=== PATIENT | male | born 1960 | race African-American/Black ===

== ENCOUNTER 2017-01-26 12:53 | Inpatient (IN) | payer MEDICARE, MEDICAID ==
[~2017-01-26] VITALS: Ht 180.3 cm; Wt 73.0 kg
[~2017-01-26 12:53] MED LIST: AMLO10TA80 PO; CELL2 PO; CLON0.2T PO; COR25 PO; ESOM40CA PO; FISH1CAP29 PO; FOLI-43 PO; FOLI1TAB63 PO; FURO-151 PO; HYDR-4134 PO; LEVO250T2 PO; NEPVIT PO; OMEG1CAP17 PO; OMEP20CA10 PO; PRED5TAB48 PO; PROG1 PO; REV20 PO; SUCR1TAB PO; TAMS-11 PO; VALS320T9 PO
[2017-01-26 13:25] LABS: MEAN CORPUSCULAR HEMOGLOBIN 29.3 pg (28.0-32.0); MEAN CORPUSCULAR HGB CONC 31.8 g/dL (31.0-37.0); MEAN PLATELET VOLUME 8.4 fl (7.4-10.4); PLATELET 139 x1000/uL (130-400); RED BLOOD CELL COUNT 2.09 mill/uL (4.7-6.1); RED CELL DISTRIBUTION WIDTH 19.7 % (11.6-14.6); WHITE BLOOD COUNT 5.6 x1000/uL (4.5-11.0)
[2017-01-26 13:29] LABS: DIFFERENTIAL COMMENT 1; HEMATOCRIT. 19.2 % (42.0-52.0); HEMOGLOBIN. 6.1 g/dL (14.0-18.0)
[2017-01-26 13:31] LABS: CHLORIDE 113 mEq/L (98-107); INDEX HEMOLYSI 1 (1-3); INDEX ICTERIC 1 (1-4); INDEX LIPEMIC 1 (1-3)
[2017-01-26 13:33] LABS: INR 1.1; PROTHROMBIN TIME 11.4 sec
[2017-01-26 13:40] LABS: ALANINE AMINOTRANSFERASE 11 IU/L (13-61); ALBUMIN 2.4 g/dL (3.4-5.0); ANION GAP 16; CALCIUM 8.3 mg/dL (8.5-10.1); CARBON DIOXIDE 15 mEq/L (21-32); UREA NITROGEN BLOOD 58 mg/dL (7-21); eGFR 12 mL/min (>60)
[2017-01-26 14:06] LABS: PLATELET ESTIMATE NORMAL
[2017-01-26 14:07] LABS: ANISOCYTOSIS 2+
[2017-01-26] MEDS ORDERED: ONDANSETRON HCL 4MG/2ML VIAL IV PRN (14:45)
[2017-01-26] MEDS ORDERED: IPRATROPIUM/ALBUTEROL 0.5-3(2.5)MG/3ML NEB INH PRN (14:45)
[2017-01-26] MEDS ORDERED: MORPHINE SULFATE 2 MG/ML CPJ (NOT FOR IM USE) IV PRN (14:45)
[2017-01-26] MEDS ORDERED: MAGNESIUM/ALUMINUM HYDROXIDE/SIMETHICONE 30ML UDC PO PRN (14:45)
[2017-01-26] MEDS ORDERED: TRAMADOL 50MG TABLET PO PRN (14:45)
[2017-01-26] MEDS ORDERED: LORAZEPAM 2MG/ML CPJ IV PRN (14:45)
[2017-01-26] MEDS ORDERED: CLONIDINE 0.1MG TABLET PO PRN (14:45)
[2017-01-26] MEDS ORDERED: PANTOPRAZOLE 80 MG in SODIUM CHLORIDE 0.9% 100 ML IV SCH ×2 (14:45→15:30)
[2017-01-26] MEDS ORDERED: DOCUSATE SODIUM 100MG CAPSULE PO PRN (14:45)
[2017-01-26] MEDS ORDERED: GUAIFENESIN 200MG/10ML SUGAR FREE UDC PO PRN (14:45)
[2017-01-26 15:32] LABS: INDEX HEMOLYSI 1 (1-3); INDEX ICTERIC 1 (1-4); INDEX LIPEMIC 1 (1-3); IRON 21 ug/dL (50-175); TOTAL IRON BINDING CAPACITY 171 ug/dL (250-450)
[2017-01-26] MEDS ORDERED: DIPHENHYDRAMINE 50MG/ML VIAL IV ONE (15:45)
[2017-01-26 16:03] LABS: FOLIC ACID (FOLATE) SERUM 18.9 ng/mL (>5.38)
[2017-01-26] MEDS: SEVELAMER CARBONATE 800 MG TABLET PO SCH (16:08)
[2017-01-26 21:10] VITALS: BP 165/87
[2017-01-26 21:20] VITALS: BP 165/87
[2017-01-26] MEDS: HYDRALAZINE HCL 50MG TABLET PO SCH (22:36)
[2017-01-26] MEDS: CARVEDILOL 25MG TABLET PO SCH (22:36)
[2017-01-26] MEDS: SILDENAFIL CITRATE 20MG TABLET PO SCH (22:37)
[2017-01-26] MEDS: ZOLPIDEM TARTRATE 5MG TABLET PO PRN (22:44)
[2017-01-27] VITALS (16 sets, daily range): BP systolic 126–159; BP diastolic 71–89
[2017-01-27] MEDS ORDERED: CALCIFEDIOL PO (00:03)
[2017-01-27] MEDS ORDERED: DRON400T PO (00:03)
[2017-01-27] MEDS ORDERED: MEGE400O PO (00:03)
[2017-01-27] MEDS ORDERED: FLUCONAZOLE PO (00:06)
[2017-01-27] MEDS ORDERED: DUTA0.5C2 PO (00:06)
[2017-01-27] MEDS ORDERED: FLUT100D INH (00:08)
[2017-01-27] MEDS ORDERED: SULF1TAB48 PO (00:09)
[2017-01-27 00:35] LABS: HEMATOCRIT 21.3 % (42.0-52.0)
[2017-01-27] MEDS: DIPHENHYDRAMINE 50MG/ML VIAL IV PRN ×2 (00:44→17:50)
[2017-01-27 00:48] LABS: HEMOGLOBIN 6.9 g/dL (14.0-18.0)
[2017-01-27] MEDS: HYDRALAZINE HCL 50MG TABLET PO SCH ×3 (05:52→21:45)
[2017-01-27] MEDS: TACROLIMUS 1MG CAPSULE PO SCH ×2 (05:52→18:10)
[2017-01-27] MEDS: SILDENAFIL CITRATE 20MG TABLET PO SCH ×3 (05:53→21:46)
[2017-01-27] MEDS: CARVEDILOL 25MG TABLET PO SCH ×2 (05:53→18:11)
[2017-01-27] MEDS: TAMSULOSIN HCL 0.4MG SR CAPSULE PO SCH ×2 (05:53→18:11)
[2017-01-27 06:29] LABS: HEMATOCRIT. 24.4 % (42.0-52.0); HEMOGLOBIN. 8.5 g/dL (14.0-18.0); MEAN CORPUSCULAR HEMOGLOBIN 31.6 pg (28.0-32.0); MEAN CORPUSCULAR HGB CONC 34.9 g/dL (31.0-37.0); MEAN CORPUSCULAR VOLUME 90.6 fL (80.0-94.0); MEAN PLATELET VOLUME 9.2 fl (7.4-10.4); PLATELET 145 x1000/uL (130-400); RED BLOOD CELL COUNT 2.69 mill/uL (4.7-6.1); RED CELL DISTRIBUTION WIDTH 17.8 % (11.6-14.6); WHITE BLOOD COUNT 5.9 x1000/uL (4.5-11.0)
[2017-01-27 07:04] LABS: DIFFERENTIAL COMMENT 1
[2017-01-27 07:15] LABS: INDEX HEMOLYSI 1 (1-3)
[2017-01-27] MEDS: SEVELAMER CARBONATE 800 MG TABLET PO SCH ×3 (07:59→18:10)
[2017-01-27] MEDS: MYCOPHENOLATE MOFETIL 500MG TABLET PO SCH ×2 (08:00→18:10)
[2017-01-27] MEDS: FOLIC ACID/VITAMIN B COMP W-C TABLET PO SCH (08:00)
[2017-01-27] MEDS: PREDNISONE 5MG TABLET PO SCH (08:00)
[2017-01-27] MEDS: PANTOPRAZOLE SODIUM 40 MG/VIAL IV SCH (08:00)
[2017-01-27] MEDS: ACETAMINOPHEN 325MG TABLET PO PRN (08:01)
[2017-01-27 08:54] LABS: ANISOCYTOSIS 1+; NUCLEATED RED BLOOD CELLS 1 /100 WBC; PLATELET ESTIMATE NORMAL
[2017-01-27 08:55] LABS: GIANT PLATELETS FEW
[2017-01-27] MEDS ORDERED: TACROLIMUS 1MG CAPSULE PO SCH (09:00)
[2017-01-27] MEDS: FUROSEMIDE 40MG TABLET PO SCH (09:23)
[2017-01-27] MEDS: DOXERCALCIFEROL 0.5MCG CAPSULE PO SCH (09:23)
[2017-01-27] MEDS: CITRIC ACID/SODIUM CITRATE SOLN 30ML UDC PO SCH ×3 (09:24→18:10)
[2017-01-27] MEDS: AMLODIPINE 10MG TABLET PO SCH (09:24)
[2017-01-27] MEDS: DUTASTERIDE 0.5MG CAPSULE PO SCH (11:00)
[2017-01-27] MEDS: ALBUTEROL (0.083%) 2.5MG/3ML NEB HHN PRN ×3 (11:03→21:11)
[2017-01-27 11:54] LABS: HEMATOCRIT 23.3 % (42.0-52.0); HEMOGLOBIN 7.6 g/dL (14.0-18.0)
[2017-01-27] MEDS ORDERED: VANCOMYCIN 1 G PREMIX 200 ML IV NR (12:00)
[2017-01-27] MEDS ORDERED: SILDENAFIL CITRATE 20MG TABLET PO SCH (14:00)
[2017-01-27] MEDS ORDERED: VANCOMYCIN 500 MG PREMIX 100 ML IV NR (20:00)
[2017-01-27 22:54] LABS: HEMATOCRIT 27.8 % (42.0-52.0); HEMOGLOBIN 8.8 g/dL (14.0-18.0)
[2017-01-27] MEDS: MEROPENEM 500 MG in SODIUM CHLORIDE 0.9% 50 ML IV SCH (23:26)
[2017-01-28] VITALS: BP 144/83
[2017-01-28] MEDS: ALBUTEROL (0.083%) 2.5MG/3ML NEB HHN PRN ×2 (02:11→21:03)
[2017-01-28 04:00] VITALS: BP 121/64
[2017-01-28 06:00] VITALS: BP 143/79
[2017-01-28] MEDS: TACROLIMUS 1MG CAPSULE PO SCH ×2 (06:15→18:28)
[2017-01-28] MEDS: HYDRALAZINE HCL 50MG TABLET PO SCH ×3 (06:16→21:12)
[2017-01-28] MEDS: CARVEDILOL 25MG TABLET PO SCH ×2 (06:16→18:29)
[2017-01-28] MEDS: SILDENAFIL CITRATE 20MG TABLET PO SCH ×3 (06:16→21:13)
[2017-01-28] MEDS: TAMSULOSIN HCL 0.4MG SR CAPSULE PO SCH ×2 (06:16→18:30)
[2017-01-28 06:29] LABS: HEMATOCRIT. 26.9 % (42.0-52.0); HEMOGLOBIN. 8.6 g/dL (14.0-18.0); MEAN CORPUSCULAR HEMOGLOBIN 28.8 pg (28.0-32.0); MEAN CORPUSCULAR HGB CONC 32.2 g/dL (31.0-37.0); MEAN CORPUSCULAR VOLUME 89.5 fL (80.0-94.0); MEAN PLATELET VOLUME 9.1 fl (7.4-10.4); PLATELET 145 x1000/uL (130-400); RED CELL DISTRIBUTION WIDTH 17.6 % (11.6-14.6); WHITE BLOOD COUNT 7.1 x1000/uL (4.5-11.0)
[2017-01-28 07:08] LABS: DIFFERENTIAL COMMENT 1
[2017-01-28 07:58] LABS: ALANINE AMINOTRANSFERASE < 6 IU/L (13-61); ALBUMIN 2.3 g/dL (3.4-5.0); ANION GAP 18; CALCIUM 8.4 mg/dL (8.5-10.1); CARBON DIOXIDE 15 mEq/L (21-32); CHLORIDE 112 mEq/L (98-107); INDEX HEMOLYSI 1 (1-3); INDEX ICTERIC 1 (1-4); INDEX LIPEMIC 1 (1-3); UREA NITROGEN BLOOD 55 mg/dL (7-21); eGFR 12 mL/min (>60)
[2017-01-28] MEDS: PANTOPRAZOLE SODIUM 40 MG/VIAL IV SCH (09:00)
[2017-01-28] MEDS: DUTASTERIDE 0.5MG CAPSULE PO SCH (09:04)
[2017-01-28] MEDS: FOLIC ACID/VITAMIN B COMP W-C TABLET PO SCH (09:04)
[2017-01-28] MEDS: CITRIC ACID/SODIUM CITRATE SOLN 30ML UDC PO SCH ×3 (09:05→18:27)
[2017-01-28] MEDS: MYCOPHENOLATE MOFETIL 500MG TABLET PO SCH ×2 (09:05→18:29)
[2017-01-28] MEDS: SEVELAMER CARBONATE 800 MG TABLET PO SCH ×3 (09:05→18:28)
[2017-01-28] MEDS: FUROSEMIDE 40MG TABLET PO SCH (09:05)
[2017-01-28] MEDS: DOXERCALCIFEROL 0.5MCG CAPSULE PO SCH (09:05)
[2017-01-28] MEDS: AMLODIPINE 10MG TABLET PO SCH (09:20)
[2017-01-28] MEDS: PREDNISONE 5MG TABLET PO SCH (09:21)
[2017-01-28 12:16] LABS: ANISOCYTOSIS 1+; PLATELET ESTIMATE NORMAL
[2017-01-28] MEDS: MEROPENEM 500 MG in SODIUM CHLORIDE 0.9% 50 ML IV SCH (13:27)
[2017-01-28 13:31] LABS: IMMUNOGLOBULIN A 263 mg/dL (90-386); IMMUNOGLOBULIN G 1227 mg/dL (700-1600); IMMUNOGLOBULIN M 84 mg/dL (20-172)
[2017-01-28] MEDS ORDERED: SIMETHICONE 40 MG/0.6 ML 30ML ONE (13:47)
[2017-01-28] MEDS ORDERED: SODIUM CHLORIDE 0.9% 10ML VIAL ONE (13:47)
[2017-01-28] MEDS ORDERED: MIDAZOLAM HCL 5 MG/5 ML VIAL IV PRN (15:24)
[2017-01-28] MEDS ORDERED: FENTANYL CITRATE/PF 50MCG/ML 2ML VIAL IV PRN (15:24)
[2017-01-28] MEDS ORDERED: MIDAZOLAM HCL 5 MG/5 ML VIAL ONE (15:29)
[2017-01-28] MEDS ORDERED: FENTANYL CITRATE/PF 50MCG/ML 2ML VIAL ONE (15:29)
[2017-01-28] MEDS ORDERED: SORBITOL 70% SOLN 30ML PO NR ×2 (17:00→20:30)
[2017-01-28] MEDS ORDERED: VANCOMYCIN 1 G PREMIX 200 ML IV SCH (18:30)
[2017-01-28 21:00] VITALS: BP 132/71
[2017-01-29] VITALS: BP 133/70
[2017-01-29] MEDS: MEROPENEM 500 MG in SODIUM CHLORIDE 0.9% 50 ML IV SCH ×3 (00:23→23:55)
[2017-01-29] MEDS: ALBUTEROL (0.083%) 2.5MG/3ML NEB HHN PRN ×3 (01:43→16:38)
[2017-01-29 04:00] VITALS: BP 146/72
[2017-01-29] MEDS: CARVEDILOL 25MG TABLET PO SCH ×2 (06:00→16:58)
[2017-01-29] MEDS: HYDRALAZINE HCL 50MG TABLET PO SCH ×3 (06:00→21:48)
[2017-01-29] MEDS: TAMSULOSIN HCL 0.4MG SR CAPSULE PO SCH ×2 (06:00→16:58)
[2017-01-29] MEDS: SILDENAFIL CITRATE 20MG TABLET PO SCH ×3 (06:00→21:48)
[2017-01-29] MEDS: TACROLIMUS 1MG CAPSULE PO SCH ×2 (06:00→16:58)
[2017-01-29] MEDS: SEVELAMER CARBONATE 800 MG TABLET PO SCH ×3 (07:40→16:57)
[2017-01-29 08:00] VITALS: BP 150/72
[2017-01-29] MEDS: DOXERCALCIFEROL 0.5MCG CAPSULE PO SCH (08:26)
[2017-01-29] MEDS: PANTOPRAZOLE SODIUM 40 MG/VIAL IV SCH (08:26)
[2017-01-29] MEDS: PREDNISONE 5MG TABLET PO SCH (08:26)
[2017-01-29] MEDS: CITRIC ACID/SODIUM CITRATE SOLN 30ML UDC PO SCH ×3 (08:27→16:57)
[2017-01-29] MEDS: AMLODIPINE 10MG TABLET PO SCH (08:27)
[2017-01-29] MEDS: FOLIC ACID/VITAMIN B COMP W-C TABLET PO SCH (08:27)
[2017-01-29] MEDS: DUTASTERIDE 0.5MG CAPSULE PO SCH (08:27)
[2017-01-29] MEDS: MYCOPHENOLATE MOFETIL 500MG TABLET PO SCH ×2 (08:27→16:58)
[2017-01-29] MEDS: FUROSEMIDE 40MG TABLET PO SCH (08:27)
[2017-01-29 12:00] VITALS: BP 146/66
[2017-01-29 16:00] VITALS: BP 140/67
[2017-01-29 20:00] VITALS: BP 146/81
[2017-01-29] MEDS ORDERED: SORBITOL 70% SOLN 30ML PO NR (20:00)
[2017-01-29] MEDS: ZOLPIDEM TARTRATE 5MG TABLET PO PRN (23:55)
[2017-01-30] VITALS: BP 138/73
[2017-01-30] MEDS: ALBUTEROL (0.083%) 2.5MG/3ML NEB HHN PRN ×3 (02:31→20:14)
[2017-01-30 04:00] VITALS: BP 152/77
[2017-01-30] MEDS: HYDRALAZINE HCL 50MG TABLET PO SCH ×3 (05:44→21:10)
[2017-01-30] MEDS: TAMSULOSIN HCL 0.4MG SR CAPSULE PO SCH ×2 (05:44→17:15)
[2017-01-30] MEDS: CARVEDILOL 25MG TABLET PO SCH ×2 (05:45→17:23)
[2017-01-30] MEDS: TACROLIMUS 1MG CAPSULE PO SCH ×2 (05:45→17:15)
[2017-01-30] MEDS: SILDENAFIL CITRATE 20MG TABLET PO SCH ×3 (05:49→21:10)
[2017-01-30] MEDS ORDERED: SORBITOL 70% SOLN 30ML PO NR (06:00)
[2017-01-30] MEDS: SEVELAMER CARBONATE 800 MG TABLET PO SCH ×3 (07:43→17:15)
[2017-01-30 08:00] VITALS: BP 127/62
[2017-01-30] MEDS ORDERED: NA PHOS,M-B/NA PHOS,DI-BA ENEMA 118ML PR NR (08:00)
[2017-01-30] MEDS: FOLIC ACID/VITAMIN B COMP W-C TABLET PO SCH (09:56)
[2017-01-30] MEDS: DUTASTERIDE 0.5MG CAPSULE PO SCH (09:57)
[2017-01-30] MEDS: FUROSEMIDE 40MG TABLET PO SCH (09:57)
[2017-01-30] MEDS: CITRIC ACID/SODIUM CITRATE SOLN 30ML UDC PO SCH ×3 (09:57→17:15)
[2017-01-30] MEDS: MYCOPHENOLATE MOFETIL 500MG TABLET PO SCH ×2 (09:57→17:15)
[2017-01-30] MEDS: AMLODIPINE 10MG TABLET PO SCH (09:58)
[2017-01-30] MEDS: DOXERCALCIFEROL 0.5MCG CAPSULE PO SCH (09:58)
[2017-01-30] MEDS: PREDNISONE 5MG TABLET PO SCH (10:00)
[2017-01-30] MEDS: PANTOPRAZOLE SODIUM 40 MG/VIAL IV SCH (10:15)
[2017-01-30 12:00] VITALS: BP 135/72
[2017-01-30] MEDS: MEROPENEM 500 MG in SODIUM CHLORIDE 0.9% 50 ML IV SCH (12:42)
[2017-01-30 16:00] VITALS: BP 146/73
[2017-01-30 20:05] VITALS: BP 147/72
[2017-01-31] VITALS (7 sets, daily range): BP systolic 143–165; BP diastolic 60–87
[2017-01-31 00:12] LABS: CALCIUM 8.4 mg/dL (8.5-10.1)
[2017-01-31] MEDS: MEROPENEM 500 MG in SODIUM CHLORIDE 0.9% 50 ML IV SCH ×3 (00:13→23:56)
[2017-01-31] MEDS: SILDENAFIL CITRATE 20MG TABLET PO SCH ×3 (05:01→21:45)
[2017-01-31] MEDS: HYDRALAZINE HCL 50MG TABLET PO SCH ×3 (05:01→21:44)
[2017-01-31] MEDS: CARVEDILOL 25MG TABLET PO SCH ×2 (06:12→17:01)
[2017-01-31] MEDS: TAMSULOSIN HCL 0.4MG SR CAPSULE PO SCH ×2 (06:12→17:01)
[2017-01-31] MEDS: TACROLIMUS 1MG CAPSULE PO SCH ×2 (06:12→17:01)
[2017-01-31] MEDS: FOLIC ACID/VITAMIN B COMP W-C TABLET PO SCH (08:13)
[2017-01-31] MEDS: CITRIC ACID/SODIUM CITRATE SOLN 30ML UDC PO SCH ×3 (08:13→17:01)
[2017-01-31] MEDS: PANTOPRAZOLE SODIUM 40 MG/VIAL IV SCH (08:13)
[2017-01-31] MEDS: FUROSEMIDE 40MG TABLET PO SCH (08:14)
[2017-01-31] MEDS: DUTASTERIDE 0.5MG CAPSULE PO SCH (08:14)
[2017-01-31] MEDS: AMLODIPINE 10MG TABLET PO SCH (08:14)
[2017-01-31] MEDS: PREDNISONE 5MG TABLET PO SCH (08:14)
[2017-01-31] MEDS: SEVELAMER CARBONATE 800 MG TABLET PO SCH ×3 (08:14→16:57)
[2017-01-31] MEDS: MYCOPHENOLATE MOFETIL 500MG TABLET PO SCH ×2 (08:14→16:58)
[2017-01-31] MEDS: DOXERCALCIFEROL 0.5MCG CAPSULE PO SCH (08:15)
[2017-01-31] MEDS: ALBUTEROL (0.083%) 2.5MG/3ML NEB HHN PRN ×2 (08:59→14:34)
[2017-01-31 09:02] LABS: BASOPHILS % 0.5 % (0.0-2.0); HEMATOCRIT. 29.9 % (42.0-52.0); HEMOGLOBIN. 9.6 g/dL (14.0-18.0); LYMPHOCYTES % 11.7 % (20.0-50.0); MEAN CORPUSCULAR HEMOGLOBIN 29.1 pg (28.0-32.0); MEAN CORPUSCULAR HGB CONC 32.2 g/dL (31.0-37.0); MEAN CORPUSCULAR VOLUME 90.3 fL (80.0-94.0); MEAN PLATELET VOLUME 8.2 fl (7.4-10.4); MONOCYTES % 11.7 % (2.0-8.0); NEUTROPHILS % 72.1 % (40.0-76.0); PLATELET 170 x1000/uL (130-400); RED BLOOD CELL COUNT 3.31 mill/uL (4.7-6.1); RED CELL DISTRIBUTION WIDTH 18.2 % (11.6-14.6); WHITE BLOOD COUNT 5.9 x1000/uL (4.5-11.0)
[2017-01-31 09:15] LABS: CALCIUM 8.5 mg/dL (8.5-10.1)
[2017-02-01] VITALS: BP 161/82
[2017-02-01 04:00] VITALS: BP 165/91
[2017-02-01] MEDS: HYDRALAZINE HCL 50MG TABLET PO SCH (05:39)
[2017-02-01] MEDS: TACROLIMUS 1MG CAPSULE PO SCH (05:40)
[2017-02-01] MEDS: TAMSULOSIN HCL 0.4MG SR CAPSULE PO SCH (05:40)
[2017-02-01] MEDS: CARVEDILOL 25MG TABLET PO SCH (05:40)
[2017-02-01] MEDS: SILDENAFIL CITRATE 20MG TABLET PO SCH (05:40)
[2017-02-01 06:47] LABS: BASOPHILS % 0.5 % (0.0-2.0); EOSINOPHILS % 4.1 % (0.0-5.0); HEMATOCRIT. 28.8 % (42.0-52.0); HEMOGLOBIN. 9.1 g/dL (14.0-18.0); LYMPHOCYTES % 11.9 % (20.0-50.0); MEAN CORPUSCULAR HEMOGLOBIN 28.2 pg (28.0-32.0); MEAN CORPUSCULAR HGB CONC 31.4 g/dL (31.0-37.0); MEAN CORPUSCULAR VOLUME 89.8 fL (80.0-94.0); MEAN PLATELET VOLUME 7.5 fl (7.4-10.4); MONOCYTES % 10.5 % (2.0-8.0); PLATELET 168 x1000/uL (130-400); RED BLOOD CELL COUNT 3.21 mill/uL (4.7-6.1); WHITE BLOOD COUNT 6.2 x1000/uL (4.5-11.0)
[2017-02-01 08:00] VITALS: BP 141/83
[2017-02-01 08:26] LABS: CALCIUM 8.5 mg/dL (8.5-10.1)
[2017-02-01] MEDS: DUTASTERIDE 0.5MG CAPSULE PO SCH (08:52)
[2017-02-01] MEDS: PREDNISONE 5MG TABLET PO SCH (08:52)
[2017-02-01] MEDS: MYCOPHENOLATE MOFETIL 500MG TABLET PO SCH (08:53)
[2017-02-01] MEDS: FOLIC ACID/VITAMIN B COMP W-C TABLET PO SCH (08:53)
[2017-02-01] MEDS: AMLODIPINE 10MG TABLET PO SCH (08:53)
[2017-02-01] MEDS: SEVELAMER CARBONATE 800 MG TABLET PO SCH ×2 (08:53→11:59)
[2017-02-01] MEDS: PANTOPRAZOLE SODIUM 40 MG/VIAL IV SCH (08:54)
[2017-02-01] MEDS: FUROSEMIDE 40MG TABLET PO SCH (08:54)
[2017-02-01] MEDS: CITRIC ACID/SODIUM CITRATE SOLN 30ML UDC PO SCH ×2 (08:54→12:00)
[2017-02-01] MEDS: ACETAMINOPHEN 325MG TABLET PO PRN (08:54)
[2017-02-01] MEDS: DOXERCALCIFEROL 0.5MCG CAPSULE PO SCH (08:59)
[2017-02-01] MEDS: ALBUTEROL (0.083%) 2.5MG/3ML NEB HHN PRN (09:07)
[2017-02-01] MEDS: MEROPENEM 500 MG in SODIUM CHLORIDE 0.9% 50 ML IV SCH (11:48)
[2017-02-01 12:00] VITALS: BP 127/69
[2017-02-01 12:22] VITALS: BP 141/83
[2017-02-01 12:28] VITALS: BP 127/69
== END 2017-02-01 13:45 | disposition home or self-care (01) | DRG 871 ==
LOC: ER 14:07 → 8WST 14:11 → SUPCPDRO 20:05
PROVIDERS: ADMIT Internal Medicine; ATTEND Internal Medicine
PROC: 30233N1 Transfusion of Nonautologous Red Blood Cells into Peripheral Vein, Percutaneous Approach (ICD-10-PCS; 2017-01-26)
PROC: 0DB68ZX Excision of Stomach, Via Natural or Artificial Opening Endoscopic, Diagnostic (ICD-10-PCS; principal; 2017-01-28 15:00)
PROC: 02HV33Z Insertion of Infusion Device into Superior Vena Cava, Percutaneous Approach (ICD-10-PCS; 2017-01-31)
PROC: B5181ZA Fluoroscopy of Superior Vena Cava using Low Osmolar Contrast, Guidance (ICD-10-PCS; 2017-01-31)
PROC: B548ZZA Ultrasonography of Superior Vena Cava, Guidance (ICD-10-PCS; 2017-01-31)
DX: A41.51 Sepsis due to Escherichia coli [E. coli] (principal); E43 Unspecified severe protein-calorie malnutrition; N18.6 End stage renal disease; D62 Acute posthemorrhagic anemia; N17.9 Acute kidney failure, unspecified; N13.8 Other obstructive and reflux uropathy; I13.11 Hypertensive heart and chronic kidney disease without heart failure, with stage 5 chronic kidney disease, or end stage renal disease; K92.2 Gastrointestinal hemorrhage, unspecified; Z94.0 Kidney transplant status; D50.9 Iron deficiency anemia, unspecified; E78.00 Pure hypercholesterolemia, unspecified; E78.5 Hyperlipidemia, unspecified; I25.10 Atherosclerotic heart disease of native coronary artery without angina pectoris; I27.2 Other secondary pulmonary hypertension; K21.9 Gastro-esophageal reflux disease without esophagitis; N40.1 Benign prostatic hyperplasia with lower urinary tract symptoms; Z95.1 Presence of aortocoronary bypass graft; Z99.2 Dependence on renal dialysis; Z68.22 Body mass index [BMI] 22.0-22.9, adult; Z79.899 Other long term (current) drug therapy; Z28.21 Immunization not carried out because of patient refusal
CPT/HCPCS: 36415; 36430; 36569; 71010; 76937; 77001; 80048; 80053; 80202; 82270; 82607; 82728; 82746; 82784; 83010; 83540; 83550; 83615; 84145; 85014; 85018; 85025; 85610; 86334; 86850; 86880; 86900; 86920; 87040; 87077; 87086; 87186; 88305; 88312; 88313; 93005; 94640; 94664; 96374; 96375; 99291; A4216; C1725; C1769; C9113; J1200; J2185; J2250; J3010; J3370; J7050; J7507; J7512; J7517; J7611; P9016

== ENCOUNTER 2017-09-01 12:02 | Inpatient (IN) | payer MEDICARE, MEDICAID ==
[~2017-09-01] VITALS: Ht 180.3 cm; Wt 78.0 kg
[~2017-09-01 12:02] MED LIST changes: +CALCIFEDIOL PO; -CLON0.2T PO; +DRON400T PO; +DUTA0.5C2 PO; +FLUT100D INH; -FOLI-43 PO; -LEVO250T2 PO; +MEGE400O PO; -NEPVIT PO; +VALS320T2 PO; -VALS320T9 PO
[2017-09-01] MEDS ORDERED: IPRATROPIUM BROMIDE (0.02%) 0.5MG/2.5ML NEB HHN STA (12:42)
[2017-09-01] MEDS ORDERED: METHYLPREDNISOLONE SOD SUCC 125 MG/2 ML VIAL IV STA (12:42)
[2017-09-01] MEDS ORDERED: ALBUTEROL (0.083%) 2.5MG/3ML NEB HHN STA (12:42)
[2017-09-01 12:54] LABS: HEMOGLOBIN. 9.4 g/dL (14.0-18.0); MEAN CORPUSCULAR HEMOGLOBIN 28.8 pg (28.0-32.0); MEAN CORPUSCULAR VOLUME 92.3 fL (80.0-94.0); MEAN PLATELET VOLUME 7.7 fl (7.4-10.4); PLATELET 132 x1000/uL (130-400); RED BLOOD CELL COUNT 3.25 mill/uL (4.7-6.1); RED CELL DISTRIBUTION WIDTH 16.8 % (11.6-14.6)
[2017-09-01 13:03] LABS: INR 1.2; PROTHROMBIN TIME 12.4 sec (9.4-11.6)
[2017-09-01 13:08] LABS: CARBON DIOXIDE 30 mEq/L (21-32); CHLORIDE 102 mEq/L (98-107); PHOSPHORUS 3.2 mg/dL (2.5-4.9)
[2017-09-01 13:11] LABS: TROPONIN I 0.08 ng/mL (0.00-0.04)
[2017-09-01 13:30] LABS: ATYPICAL LYMPHOCYTES 2; PLATELET ESTIMATE NORMAL
[2017-09-01] MEDS ORDERED: CEFTRIAXONE 1 G PREMIX 50 ML IV ONE (13:30)
[2017-09-01] MEDS ORDERED: BUMETANIDE 0.25MG/ML 2ML VIAL IV ONE (13:30)
[2017-09-01] MEDS: AZITHROMYCIN 500 MG in DEXT 5% WATER 250 ML IV SCH ×2 (14:12→14:56)
[2017-09-01] MEDS ORDERED: ONDANSETRON HCL 4MG/2ML VIAL ONE (14:24)
[2017-09-01] MEDS: CARVEDILOL 25MG TABLET PO SCH ×2 (14:30→20:17)
[2017-09-01] MEDS ORDERED: ONDANSETRON HCL 4MG/2ML VIAL IV ONE (14:30)
[2017-09-01] MEDS ORDERED: CARVEDILOL 25MG TABLET PO ONE (14:30)
[2017-09-01 16:52] VITALS: BP 150/63
[2017-09-01] MEDS ORDERED: PIOGLITAZONE 45MG TABLET PO NR (17:00)
[2017-09-01 17:18] VITALS: BP 151/63
[2017-09-01] MEDS ORDERED: CEFTRIAXONE 2 G PREMIX 50 ML IV SCH (17:30)
[2017-09-01 17:40] LABS: BG BASE EXCESS -0.3 mmol/L (-2.0-2.0); BG CARBOXYHEMOGLOBIN 1.2 % (0.5-1.5); BG DEOXYHEMOGLOBIN 8.9 % (0.0-5.0); BG FRACTION INSPIRED OXYGEN 32; BG HCO3 ACT 27.5 mmol/L (22.0-26.0); BG METHEMOGLOBIN 0.3 % (0.0-1.5); BG OXYHEMOGLOBIN 89.6 % (94.0-97.0); BG PCO2 62.3 mmHg (35.0-45.0); BG PH 7.263 (7.350-7.450); BG PO2 66.5 mmHg (75.0-100.0); BG SAMPLE SITE RIGHT BRACHIAL; BG TOTAL HEMOGLOBIN 10.2 g/dL (12.0-18.0); BG VENT MODE NASAL CANNULA
[2017-09-01] MEDS: OMEPRAZOLE 20MG CAPSULE EXTENDED RELEASE PO SCH (18:35)
[2017-09-01] MEDS: LOSARTAN POTASSIUM 50 MG TABLET PO SCH ×2 (18:35→21:00)
[2017-09-01] MEDS: TACROLIMUS 0.5 MG CAPSULE PO SCH (18:35)
[2017-09-01] MEDS ORDERED: FLUTICASONE/VILANTEROL 200-25 BLST.W.DEV ORI SCH (20:00)
[2017-09-01 20:45] VITALS: BP 148/86
[2017-09-01] MEDS ORDERED: MYCOPHENOLATE MOFETIL 250MG CAPSULE PO SCH ×2 (21:00→22:00)
[2017-09-01] MEDS: BUDESONIDE 0.5MG/2ML NEB HHN SCH (21:43)
[2017-09-01] MEDS: IPRATROPIUM/ALBUTEROL 0.5-3(2.5)MG/3ML NEB HHN SCH (21:43)
[2017-09-01] MEDS: SILDENAFIL CITRATE 20MG TABLET PO SCH (21:49)
[2017-09-01] MEDS: FAMOTIDINE 20MG/2ML VIAL IV SCH (21:49)
[2017-09-01] MEDS: METHYLPREDNISOLONE SOD SUCC 125 MG/2 ML VIAL IV SCH (21:49)
[2017-09-01] MEDS: FLUTICASONE PROPIONATE 50MCG/SPRAY BOTTLE BOTHNSTRLS SCH (22:02)
[2017-09-01 22:03] VITALS: BP 147/69
[2017-09-01] MEDS: TAMSULOSIN HCL 0.4MG SR CAPSULE PO SCH (22:03)
[2017-09-01] MEDS ORDERED: MYCOPHENOLATE MOFETIL 500MG TABLET PO SCH (22:15)
[2017-09-01 22:53] LABS: CLARITY URINE CLEAR (CLEAR); COLOR URINE YELLOW (YELLOW); GLUCOSE URINE NEGATIVE (NEGATIVE); KETONES URINE NEGATIVE (NEGATIVE); LEUKOCYTE ESTERASE URINE TRACE (NEGATIVE); NITRITE URINE NEGATIVE (NEGATIVE); OCCULT BLOOD URINE TRACE (NEGATIVE); PH URINE 5.5 (4.5-8.0); PROTEIN URINE 3+ (NEGATIVE); SPECIFIC GRAVITY URINE 1.013 (1.005-1.030); UROBILINOGEN URINE 0.2 E.U./dL (0.2-1.0)
[2017-09-01 23:40] VITALS: BP 139/65
[2017-09-02] VITALS (12 sets, daily range): BP systolic 123–155; BP diastolic 52–71
[2017-09-02] MEDS: IPRATROPIUM/ALBUTEROL 0.5-3(2.5)MG/3ML NEB HHN SCH ×4 (00:38→20:42)
[2017-09-02] MEDS: OMEPRAZOLE 20MG CAPSULE EXTENDED RELEASE PO SCH (06:21)
[2017-09-02] MEDS: SILDENAFIL CITRATE 20MG TABLET PO SCH ×3 (06:21→22:04)
[2017-09-02] MEDS: METHYLPREDNISOLONE SOD SUCC 125 MG/2 ML VIAL IV SCH ×3 (06:21→22:03)
[2017-09-02] MEDS ORDERED: PREDNISONE 5MG TABLET PO SCH (09:00)
[2017-09-02] MEDS: CEFTRIAXONE 2 G in DEXTROSE 5% WATER 50 ML IV SCH (09:10)
[2017-09-02] MEDS: TACROLIMUS 0.5 MG CAPSULE PO SCH ×2 (09:10→18:03)
[2017-09-02] MEDS: FUROSEMIDE 80MG TABLET PO SCH (09:12)
[2017-09-02] MEDS: CARVEDILOL 25MG TABLET PO SCH ×2 (09:12→20:06)
[2017-09-02] MEDS: MYCOPHENOLATE MOFETIL 500MG TABLET PO SCH ×2 (09:12→20:06)
[2017-09-02] MEDS: LOSARTAN POTASSIUM 50 MG TABLET PO SCH ×2 (09:13→20:05)
[2017-09-02] MEDS: FLUTICASONE PROPIONATE 50MCG/SPRAY BOTTLE BOTHNSTRLS SCH ×2 (09:14→20:06)
[2017-09-02] MEDS: BUDESONIDE 0.5MG/2ML NEB HHN SCH ×2 (09:29→20:42)
[2017-09-02] MEDS: AZITHROMYCIN 500 MG in DEXT 5% WATER 250 ML IV SCH (14:08)
[2017-09-02] MEDS ORDERED: HYDROCODONE/ACETAMINOPHEN 5/325MG TABLET PO PRN (15:30)
[2017-09-02] MEDS ORDERED: HYDROCODONE/ACETAMINOPHEN 10/325MG TABLET PO PRN (15:30)
[2017-09-02] MEDS: TAMSULOSIN HCL 0.4MG SR CAPSULE PO SCH (20:05)
[2017-09-02] MEDS: FAMOTIDINE 20MG/2ML VIAL IV SCH (20:06)
[2017-09-03] VITALS (12 sets, daily range): BP systolic 119–159; BP diastolic 59–83
[2017-09-03] MEDS: IPRATROPIUM/ALBUTEROL 0.5-3(2.5)MG/3ML NEB HHN SCH ×4 (01:27→22:01)
[2017-09-03] MEDS: SILDENAFIL CITRATE 20MG TABLET PO SCH ×3 (06:45→22:47)
[2017-09-03] MEDS: METHYLPREDNISOLONE SOD SUCC 125 MG/2 ML VIAL IV SCH ×3 (06:45→22:46)
[2017-09-03] MEDS: OMEPRAZOLE 20MG CAPSULE EXTENDED RELEASE PO SCH (06:45)
[2017-09-03] MEDS: CEFTRIAXONE 2 G in DEXTROSE 5% WATER 50 ML IV SCH (08:38)
[2017-09-03] MEDS: FUROSEMIDE 80MG TABLET PO SCH (08:39)
[2017-09-03] MEDS: FLUTICASONE PROPIONATE 50MCG/SPRAY BOTTLE BOTHNSTRLS SCH ×2 (08:39→21:00)
[2017-09-03] MEDS: TACROLIMUS 0.5 MG CAPSULE PO SCH ×2 (08:40→18:51)
[2017-09-03] MEDS: MYCOPHENOLATE MOFETIL 500MG TABLET PO SCH ×2 (08:41→21:13)
[2017-09-03] MEDS: LOSARTAN POTASSIUM 50 MG TABLET PO SCH ×2 (08:43→21:15)
[2017-09-03] MEDS: CARVEDILOL 25MG TABLET PO SCH ×2 (08:43→21:15)
[2017-09-03] MEDS: BUDESONIDE 0.5MG/2ML NEB HHN SCH ×2 (10:05→22:01)
[2017-09-03] MEDS: AZITHROMYCIN 500 MG in DEXT 5% WATER 250 ML IV SCH (14:17)
[2017-09-03 15:12] LABS: HEMATOCRIT. 30.8 % (42.0-52.0); HEMOGLOBIN. 9.6 g/dL (14.0-18.0); MEAN CORPUSCULAR VOLUME 93.1 fL (80.0-94.0); MEAN PLATELET VOLUME 8.2 fl (7.4-10.4); PLATELET 136 x1000/uL (130-400); RED BLOOD CELL COUNT 3.31 mill/uL (4.7-6.1); RED CELL DISTRIBUTION WIDTH 16.6 % (11.6-14.6)
[2017-09-03 18:11] LABS: PLATELET ESTIMATE SLIGHTLY DECREASED
[2017-09-03] MEDS: TAMSULOSIN HCL 0.4MG SR CAPSULE PO SCH (21:00)
[2017-09-03] MEDS: FAMOTIDINE 20MG/2ML VIAL IV SCH (21:12)
[2017-09-04] VITALS (12 sets, daily range): BP systolic 128–167; BP diastolic 7–97
[2017-09-04] MEDS: IPRATROPIUM/ALBUTEROL 0.5-3(2.5)MG/3ML NEB HHN SCH ×4 (01:52→21:13)
[2017-09-04 06:47] LABS: HEMOGLOBIN. 9.1 g/dL (14.0-18.0); MEAN CORPUSCULAR HEMOGLOBIN 28.8 pg (28.0-32.0); MEAN CORPUSCULAR VOLUME 91.6 fL (80.0-94.0); MEAN PLATELET VOLUME 8.3 fl (7.4-10.4); PLATELET 135 x1000/uL (130-400); RED BLOOD CELL COUNT 3.17 mill/uL (4.7-6.1); RED CELL DISTRIBUTION WIDTH 16.4 % (11.6-14.6)
[2017-09-04] MEDS: METHYLPREDNISOLONE SOD SUCC 125 MG/2 ML VIAL IV SCH (06:56)
[2017-09-04] MEDS: SILDENAFIL CITRATE 20MG TABLET PO SCH ×3 (06:57→22:13)
[2017-09-04] MEDS: OMEPRAZOLE 20MG CAPSULE EXTENDED RELEASE PO SCH (06:59)
[2017-09-04] MEDS: BUDESONIDE 0.5MG/2ML NEB HHN SCH ×2 (07:27→21:10)
[2017-09-04] MEDS: AZITHROMYCIN 500 MG TABLET PO SCH (08:25)
[2017-09-04] MEDS: TACROLIMUS 0.5 MG CAPSULE PO SCH ×2 (08:25→16:43)
[2017-09-04] MEDS: CEFTRIAXONE 2 G in DEXTROSE 5% WATER 50 ML IV SCH (08:25)
[2017-09-04] MEDS: FUROSEMIDE 80MG TABLET PO SCH (08:25)
[2017-09-04] MEDS: MYCOPHENOLATE MOFETIL 500MG TABLET PO SCH ×2 (08:25→20:42)
[2017-09-04] MEDS: CARVEDILOL 25MG TABLET PO SCH ×2 (08:31→20:43)
[2017-09-04] MEDS: LOSARTAN POTASSIUM 50 MG TABLET PO SCH ×2 (08:31→20:43)
[2017-09-04] MEDS: FLUTICASONE PROPIONATE 50MCG/SPRAY BOTTLE BOTHNSTRLS SCH ×2 (09:00→20:51)
[2017-09-04 09:48] LABS: PLATELET ESTIMATE NORMAL
[2017-09-04] MEDS ORDERED: DEXTROSE 50% WATER 50ML SYRINGE IV PRN (12:15)
[2017-09-04] MEDS: BLOOD SUGAR DIAGNOSTIC STRIP TEST SCH ×3 (12:44→21:25)
[2017-09-04] MEDS ORDERED: SODIUM CHLORIDE 0.9% 500 ML IV ONE (12:45)
[2017-09-04] MEDS: INSULIN LISPRO 100 UNITS/ML SUBCUT SCH ×3 (13:51→21:00)
[2017-09-04] MEDS ORDERED: WATER IV NR (14:00)
[2017-09-04] MEDS ORDERED: DEXT 5% IV NR (14:00)
[2017-09-04] MEDS ORDERED: METHYLPREDNISOLONE SOD SUCC IV NR (14:00)
[2017-09-04] MEDS: TAMSULOSIN HCL 0.4MG SR CAPSULE PO SCH (20:53)
[2017-09-04] MEDS: METHYLPREDNISOLONE SOD SUCC 40 MG/ML VIAL IV SCH (22:14)
[2017-09-04] MEDS: FAMOTIDINE 20MG/2ML VIAL IV SCH (22:26)
[2017-09-05] VITALS: BP 158/85
[2017-09-05 02:00] VITALS: BP 159/70
[2017-09-05] MEDS: IPRATROPIUM/ALBUTEROL 0.5-3(2.5)MG/3ML NEB HHN SCH ×2 (02:53→09:13)
[2017-09-05 04:00] VITALS: BP 146/71
[2017-09-05] MEDS: SILDENAFIL CITRATE 20MG TABLET PO SCH (05:45)
[2017-09-05] MEDS: METHYLPREDNISOLONE SOD SUCC 40 MG/ML VIAL IV SCH (05:45)
[2017-09-05] MEDS: OMEPRAZOLE 20MG CAPSULE EXTENDED RELEASE PO SCH (05:46)
[2017-09-05 06:00] VITALS: BP 154/92
[2017-09-05 06:38] LABS: HEMATOCRIT. 28.5 % (42.0-52.0); MEAN CORPUSCULAR HEMOGLOBIN 28.9 pg (28.0-32.0); MEAN CORPUSCULAR VOLUME 91.3 fL (80.0-94.0); MEAN PLATELET VOLUME 8.3 fl (7.4-10.4); PLATELET 143 x1000/uL (130-400); RED BLOOD CELL COUNT 3.12 mill/uL (4.7-6.1); RED CELL DISTRIBUTION WIDTH 16.6 % (11.6-14.6)
[2017-09-05] MEDS: BLOOD SUGAR DIAGNOSTIC STRIP TEST SCH (07:30)
[2017-09-05 08:00] VITALS: BP 150/91
[2017-09-05] MEDS: CARVEDILOL 25MG TABLET PO SCH (09:56)
[2017-09-05] MEDS: TACROLIMUS 0.5 MG CAPSULE PO SCH (09:57)
[2017-09-05] MEDS: AZITHROMYCIN 500 MG TABLET PO SCH (09:57)
[2017-09-05] MEDS: MYCOPHENOLATE MOFETIL 500MG TABLET PO SCH (09:57)
[2017-09-05] MEDS: LOSARTAN POTASSIUM 50 MG TABLET PO SCH (09:57)
[2017-09-05] MEDS: CEFTRIAXONE 2 G in DEXTROSE 5% WATER 50 ML IV SCH (09:57)
[2017-09-05] MEDS: FUROSEMIDE 80MG TABLET PO SCH (09:57)
[2017-09-05] MEDS: INSULIN LISPRO 100 UNITS/ML SUBCUT SCH (09:58)
[2017-09-05 10:00] VITALS: BP 163/76
[2017-09-05 10:25] LABS: BG CARBOXYHEMOGLOBIN 0.6 % (0.5-1.5); BG DEOXYHEMOGLOBIN 15.5 % (0.0-5.0); BG FRACTION INSPIRED OXYGEN 21; BG METHEMOGLOBIN 0.2 % (0.0-1.5); BG OXYGEN SATURATION 84.4 % (92.0-98.5); BG OXYHEMOGLOBIN 83.7 % (94.0-97.0); BG PCO2 42.4 mmHg (35.0-45.0); BG PH 7.389 (7.350-7.450); BG PO2 50.4 mmHg (75.0-100.0); BG SAMPLE SITE RIGHT BRACHIAL; BG TOTAL HEMOGLOBIN 10.7 g/dL (12.0-18.0); BG VENT MODE ROOM AIR
[2017-09-05 13:01] LABS: PLATELET ESTIMATE NORMAL
[2017-09-08 11:31] LABS: *CREATININE RANDOM URINE 89.4 mg/dL (Not Estab.); MICROALBUMIN RANDOM URINE 1187.7 ug/mL (Not Estab.)
== END 2017-09-05 11:56 | disposition left against medical advice (07) | DRG 196 ==
LOC: EDBEDREQ 12:30 → ER 12:42 → 7WST 13:18 → EDBEDREQTM 13:23 → EDBEDREQ 13:23 → ENRESERV 13:28 → 5EST 20:49
PROVIDERS: ADMIT Internal Medicine Nephrology; ATTEND Internal Medicine Nephrology
PROC: 5A09457 Assistance with Respiratory Ventilation, 24-96 Consecutive Hours, Continuous Positive Airway Pressure (ICD-10-PCS; principal; 2017-09-01)
DX: J82 Pulmonary eosinophilia, not elsewhere classified (principal); J96.00 Acute respiratory failure, unspecified whether with hypoxia or hypercapnia; J18.1 Lobar pneumonia, unspecified organism; D72.1 Eosinophilia; I27.21 Secondary pulmonary arterial hypertension; I13.0 Hypertensive heart and chronic kidney disease with heart failure and stage 1 through stage 4 chronic kidney disease, or unspecified chronic kidney disease; N17.9 Acute kidney failure, unspecified; N18.4 Chronic kidney disease, stage 4 (severe); I50.30 Unspecified diastolic (congestive) heart failure; I48.0 Paroxysmal atrial fibrillation; J44.0 Chronic obstructive pulmonary disease with (acute) lower respiratory infection; J44.1 Chronic obstructive pulmonary disease with (acute) exacerbation; N25.81 Secondary hyperparathyroidism of renal origin; Z94.0 Kidney transplant status; Z99.81 Dependence on supplemental oxygen; I25.10 Atherosclerotic heart disease of native coronary artery without angina pectoris; E78.00 Pure hypercholesterolemia, unspecified; E78.5 Hyperlipidemia, unspecified; I35.1 Nonrheumatic aortic (valve) insufficiency; I73.9 Peripheral vascular disease, unspecified; J30.1 Allergic rhinitis due to pollen; J98.01 Acute bronchospasm; K27.9 Peptic ulcer, site unspecified, unspecified as acute or chronic, without hemorrhage or perforation; M19.90 Unspecified osteoarthritis, unspecified site; N13.9 Obstructive and reflux uropathy, unspecified; N26.9 Renal sclerosis, unspecified; Z53.21 Procedure and treatment not carried out due to patient leaving prior to being seen by health care provider; Z77.22 Contact with and (suspected) exposure to environmental tobacco smoke (acute) (chronic); Z95.1 Presence of aortocoronary bypass graft; Z82.49 Family history of ischemic heart disease and other diseases of the circulatory system; Z86.718 Personal history of other venous thrombosis and embolism; Z79.899 Other long term (current) drug therapy
CPT/HCPCS: 36415; 36600; 71010; 74000; 80048; 80053; 80197; 81001; 82043; 82375; 82570; 82575; 82805; 82962; 83605; 83615; 83690; 83735; 83880; 84100; 84156; 84300; 84484; 85025; 85610; 85730; 87040; 87086; 87804; 93005; 93306; 93970; 94640; 94644; 94660; 94664; 96365; 96375; 96376; 97116; 97162; 99291; J0456; J0696; J1815; J2405; J2920; J2930; J3490; J7030; J7040; J7050; J7060; J7507; J7517; J7611; J7620; J7626

== ENCOUNTER → 2017-12-28 | Outpatient (CLI) | payer MEDICARE, MEDICAID ==
[~2017-12-28] MED LIST changes: +ALBU2.5V13 IH; -AMLO10TA80 PO; +CLON0.2T PO; +DARB60DI IJ; -DRON400T PO; -DUTA0.5C2 PO; -ESOM40CA PO; +FISH GT; -FISH1CAP29 PO; -FLUT100D INH; +FLUT12AE IH; -FOLI1TAB63 PO; -HYDR-4134 PO; -OMEG1CAP17 PO; -SUCR1TAB PO
== END | disposition home or self-care (01) ==
LOC: RAD 09:35
PROVIDERS: ATTEND Internal Medicine Nephrology
DX: R53.1 Weakness (principal); I10 Essential (primary) hypertension; E11.9 Type 2 diabetes mellitus without complications; I67.82 Cerebral ischemia
CPT/HCPCS: 70450

== ENCOUNTER 2018-01-23 14:04 | Inpatient (IN) | payer MEDICARE, MEDICAID ==
[~2018-01-23] VITALS: Ht 180.3 cm; Wt 64.9 kg
[2018-01-23 14:31] VITALS: BP 180/79
[2018-01-23] MEDS ORDERED: ACETAMINOPHEN 325MG TABLET PO PRN (15:15)
[2018-01-23] MEDS ORDERED: GUAIFENESIN 200MG/10ML SUGAR FREE UDC PO PRN (15:15)
[2018-01-23] MEDS ORDERED: CLONIDINE 0.1MG TABLET PO PRN (15:15)
[2018-01-23] MEDS ORDERED: ONDANSETRON HCL 4MG/2ML VIAL IV PRN (15:15)
[2018-01-23] MEDS ORDERED: DOCUSATE SODIUM 100MG CAPSULE PO PRN (15:15)
[2018-01-23] MEDS ORDERED: DIPHENHYDRAMINE 50MG/ML VIAL IV PRN (15:15)
[2018-01-23] MEDS ORDERED: LORAZEPAM 2MG/ML CPJ IV NR (15:30)
[2018-01-23 16:00] VITALS: BP 180/86
[2018-01-23] MEDS: CARVEDILOL 25MG TABLET PO SCH (17:50)
[2018-01-23] MEDS: CLONIDINE 0.2MG TABLET PO SCH (17:50)
[2018-01-23] MEDS: TACROLIMUS 1MG CAPSULE PO SCH (17:50)
[2018-01-23] MEDS: MYCOPHENOLATE MOFETIL 250MG CAPSULE PO SCH (17:50)
[2018-01-23] MEDS: LOSARTAN POTASSIUM 50 MG TABLET PO SCH (17:50)
[2018-01-23] MEDS: FUROSEMIDE 40MG TABLET PO SCH (17:50)
[2018-01-23 18:25] LABS: HEMATOCRIT. 26.2 % (42.0-52.0); HEMOGLOBIN. 8.6 g/dL (14.0-18.0); MEAN CORPUSCULAR HEMOGLOBIN 28.6 pg (28.0-32.0); MEAN CORPUSCULAR VOLUME 87.2 fL (80.0-94.0); MEAN PLATELET VOLUME 8.1 fl (7.4-10.4); PLATELET 155 x1000/uL (130-400)
[2018-01-23 19:06] LABS: PLATELET ESTIMATE NORMAL
[2018-01-23 20:00] VITALS: BP 178/78
[2018-01-23] MEDS: BUDESONIDE 0.5MG/2ML NEB HHN SCH (21:05)
[2018-01-23] MEDS: IPRATROPIUM/ALBUTEROL 0.5-3(2.5)MG/3ML NEB INH PRN (21:05)
[2018-01-23] MEDS: ENOXAPARIN 30MG/0.3ML SYR SUBCUT SCH (21:23)
[2018-01-23] MEDS: DEXT 5%/0.45% NACL 1000ML 1,000 ML IV SCH (21:33)
[2018-01-23] MEDS: SILDENAFIL CITRATE 20MG TABLET PO SCH (21:57)
[2018-01-24] VITALS: BP 156/71
[2018-01-24 04:00] VITALS: BP 150/70
[2018-01-24] MEDS: SILDENAFIL CITRATE 20MG TABLET PO SCH ×3 (05:34→21:43)
[2018-01-24 06:41] LABS: HEMATOCRIT. 27.3 % (42.0-52.0); HEMOGLOBIN. 8.9 g/dL (14.0-18.0); MEAN CORPUSCULAR HEMOGLOBIN 28.1 pg (28.0-32.0); MEAN CORPUSCULAR VOLUME 86.7 fL (80.0-94.0); MEAN PLATELET VOLUME 8.3 fl (7.4-10.4); PLATELET 167 x1000/uL (130-400); RED BLOOD CELL COUNT 3.15 mill/uL (4.7-6.1); RED CELL DISTRIBUTION WIDTH 17.2 % (11.6-14.6)
[2018-01-24 07:25] LABS: PHOSPHORUS 4.1 mg/dL (2.5-4.9)
[2018-01-24] MEDS: IPRATROPIUM/ALBUTEROL 0.5-3(2.5)MG/3ML NEB INH PRN ×2 (07:45→20:46)
[2018-01-24] MEDS: BUDESONIDE 0.5MG/2ML NEB HHN SCH ×2 (07:45→20:46)
[2018-01-24 08:00] VITALS: BP 150/69
[2018-01-24] MEDS: CLONIDINE 0.2MG TABLET PO SCH ×2 (08:16→15:20)
[2018-01-24] MEDS: FUROSEMIDE 40MG TABLET PO SCH ×2 (09:03→17:58)
[2018-01-24] MEDS: MYCOPHENOLATE MOFETIL 250MG CAPSULE PO SCH ×2 (09:03→17:58)
[2018-01-24] MEDS: TAMSULOSIN HCL 0.4MG SR CAPSULE PO SCH (09:03)
[2018-01-24] MEDS: TACROLIMUS 1MG CAPSULE PO SCH ×2 (09:03→17:58)
[2018-01-24] MEDS: OMEPRAZOLE 20MG CAPSULE EXTENDED RELEASE PO SCH (09:04)
[2018-01-24] MEDS: ERYTHROMYCIN BASE 0.5% OPHTH OINT 3.5GM RIGHTEYE SCH ×2 (09:04→17:57)
[2018-01-24] MEDS: LOSARTAN POTASSIUM 50 MG TABLET PO SCH ×2 (09:04→17:58)
[2018-01-24] MEDS: HYDROCHLOROTHIAZIDE 25MG TABLET PO SCH (09:04)
[2018-01-24] MEDS: FISH OIL/OMEGA-3 FATTY ACIDS 1000MG CAPSULE PO SCH (09:04)
[2018-01-24] MEDS: CARVEDILOL 25MG TABLET PO SCH ×2 (09:04→17:58)
[2018-01-24] MEDS: PREDNISONE 5MG TABLET PO SCH (09:04)
[2018-01-24] MEDS: DEXT 5%/0.45% NACL 1000ML 1,000 ML IV SCH (15:20)
[2018-01-24 16:00] VITALS: BP_SYST 177; BP_SYST 180; BP_DIAS 66; BP_DIAS 70
[2018-01-24 16:31] LABS: PLATELET ESTIMATE NORMAL
[2018-01-24 20:00] VITALS: BP 151/51
[2018-01-24] MEDS: ENOXAPARIN 30MG/0.3ML SYR SUBCUT SCH (21:44)
[2018-01-25] VITALS: BP 168/75
[2018-01-25 04:00] VITALS: BP 177/63
[2018-01-25] MEDS: SILDENAFIL CITRATE 20MG TABLET PO SCH ×2 (06:29→13:14)
[2018-01-25 07:24] LABS: HEMATOCRIT. 30.4 % (42.0-52.0); HEMOGLOBIN. 9.8 g/dL (14.0-18.0); MEAN CORPUSCULAR VOLUME 87.2 fL (80.0-94.0); MEAN PLATELET VOLUME 8.1 fl (7.4-10.4); PLATELET 218 x1000/uL (130-400); RED BLOOD CELL COUNT 3.49 mill/uL (4.7-6.1); RED CELL DISTRIBUTION WIDTH 17.3 % (11.6-14.6)
[2018-01-25 08:00] VITALS: BP 170/75
[2018-01-25] MEDS: FISH OIL/OMEGA-3 FATTY ACIDS 1000MG CAPSULE PO SCH (08:20)
[2018-01-25] MEDS: MYCOPHENOLATE MOFETIL 250MG CAPSULE PO SCH (08:21)
[2018-01-25] MEDS: FUROSEMIDE 40MG TABLET PO SCH (08:21)
[2018-01-25] MEDS: OMEPRAZOLE 20MG CAPSULE EXTENDED RELEASE PO SCH (08:21)
[2018-01-25] MEDS: CARVEDILOL 25MG TABLET PO SCH (08:22)
[2018-01-25] MEDS: LOSARTAN POTASSIUM 50 MG TABLET PO SCH (08:22)
[2018-01-25] MEDS: TAMSULOSIN HCL 0.4MG SR CAPSULE PO SCH (08:22)
[2018-01-25] MEDS: HYDROCHLOROTHIAZIDE 25MG TABLET PO SCH (08:23)
[2018-01-25] MEDS: PREDNISONE 5MG TABLET PO SCH (08:23)
[2018-01-25] MEDS: ERYTHROMYCIN BASE 0.5% OPHTH OINT 3.5GM RIGHTEYE SCH (08:23)
[2018-01-25] MEDS: DEXT 5%/0.45% NACL 1000ML 1,000 ML IV SCH (08:23)
[2018-01-25] MEDS: CLONIDINE 0.2MG TABLET PO SCH (08:23)
[2018-01-25] MEDS: TACROLIMUS 1MG CAPSULE PO SCH (08:34)
[2018-01-25] MEDS: BUDESONIDE 0.5MG/2ML NEB HHN SCH (09:20)
[2018-01-25] MEDS: IPRATROPIUM/ALBUTEROL 0.5-3(2.5)MG/3ML NEB INH PRN (09:20)
[2018-01-25 12:00] VITALS: BP 158/69
[2018-01-25 12:35] LABS: PLATELET ESTIMATE NORMAL
[2018-01-25 13:34] VITALS: BP 148/71
[2018-01-26] MEDS ORDERED: FAMOTIDINE 20MG TABLET PO SCH (09:00)
[2018-01-26 09:09] LABS: DRVVT LA 29.2 sec (0.0-47.0); PTT-LA 36.8 sec (0.0-51.9)
[2018-01-26 10:09] LABS: LUPUS ANTICOAG INTERPRETATION Comment: (.)
[2018-01-26 13:07] LABS: ANA IFA Negative (.)
[2018-01-27 04:15] LABS: ANTI-CARDIOLIPIN AB IGG < 9 GPL U/mL (0-14)
== END 2018-01-25 14:25 | disposition home or self-care (01) | DRG 64 ==
LOC: 8EST 14:04 → 8WST 14:21
PROVIDERS: ADMIT Internal Medicine Critical Care Medicine; ATTEND Internal Medicine Critical Care Medicine
DX: I63.9 Cerebral infarction, unspecified (principal); N18.6 End stage renal disease; I13.2 Hypertensive heart and chronic kidney disease with heart failure and with stage 5 chronic kidney disease, or end stage renal disease; J96.10 Chronic respiratory failure, unspecified whether with hypoxia or hypercapnia; I27.20 Pulmonary hypertension, unspecified; I48.91 Unspecified atrial fibrillation; Z94.0 Kidney transplant status; G51.0 Bell's palsy; I50.30 Unspecified diastolic (congestive) heart failure; I65.29 Occlusion and stenosis of unspecified carotid artery; D64.9 Anemia, unspecified; K27.9 Peptic ulcer, site unspecified, unspecified as acute or chronic, without hemorrhage or perforation; I35.1 Nonrheumatic aortic (valve) insufficiency; I73.9 Peripheral vascular disease, unspecified; J44.9 Chronic obstructive pulmonary disease, unspecified; Z86.73 Personal history of transient ischemic attack (TIA), and cerebral infarction without residual deficits; I25.10 Atherosclerotic heart disease of native coronary artery without angina pectoris; Z83.3 Family history of diabetes mellitus; Z86.718 Personal history of other venous thrombosis and embolism; Z87.11 Personal history of peptic ulcer disease; Z95.1 Presence of aortocoronary bypass graft; Z99.2 Dependence on renal dialysis; Z99.3 Dependence on wheelchair; Z99.81 Dependence on supplemental oxygen; Z79.899 Other long term (current) drug therapy
CPT/HCPCS: 36415; 70544; 70553; 71045; 80048; 80061; 80197; 83735; 83970; 84100; 85025; 85613; 85732; 86147; 86256; 92610; 93306; 93880; 93970; 94640; 97112; 97163; 97166; C1893; J1650; J2060; J3490; J7507; J7512; J7517; J7620; J7626; A4315